=== PATIENT | male | born 1955 | race African-American/Black ===

== ENCOUNTER 2021-04-17 16:24 | Emergency (ER) | payer SELFPAY ==
[~2021-04-17] VITALS: Ht 172.7 cm; Wt 61.6 kg
[~2021-04-17 16:24] MED LIST: HYDR1TAB8 OP; SULF1TAB35 PO
[2021-04-17] MEDS ORDERED: ONDANSETRON 4 MG (ZOFRAN) ORAL DISSOLVE TAB PO STA (16:35)
[2021-04-17] MEDS ORDERED: LORazepam 0.5 MG (ATIVAN) TABLET PO STA (16:35)
[2021-04-17] MEDS ORDERED: FAMOTIDINE 20 MG (PEPCID) TABLET PO ONE (16:45)
[2021-04-17] MEDS ORDERED: PROCHLORPERAZINE 10 MG TAB (COMPAZINE) PO ONE (16:45)
[2021-04-17] MEDS ORDERED: PROCHLORPERAZINE 10 MG TAB (COMPAZINE) ONE (16:46)
--- NOTE | 2021-04-17 17:27 | ED GI ---
General Chief Complaint: Abdominal/GI Problems Stated Complaint: NAUSEA/VOMITING Nursing Triage Note: Patient presents to the ED with c/o nausea and vomiting. He states his symptoms began on Wednesday and he hasn't been able to keep any food or fluids down. Source of Information: Patient Exam Limitations: No Limitations History of Present Illness Date Seen by Provider: Apr 17, 2021 Time Seen by Provider: 17:24 Initial Comments Patient is a 65-year-old -[place] male who presents with complaints of written vomiting and diarrhea starting 2 days ago. He states he has had difficulty keeping food and fluids down. Reports abdominal cramping which is mild to moderate. Denies hematemesis coffee-ground emesis or bilious emesis. No fevers chills or sweats. Reports watery stools. No other acute symptoms or complaints. No medications or therapies taken prior to ED arrival.Denies dizziness lightheadedness, chest pain palpitation shortness of breath. No leg pain or swelling. No flank pain, urinary frequency urgency or dysuria. Timing/Duration: 2-3 Days Severity/Quality: Mild Location: Other Radiation: Other Activities at Onset: Other Modifying Factors: Improves With Other Allergies and Home Medications Allergies Coded Allergies: No Known Drug Allergies (Unverified , 12/13/13) Patient Home Medication List Home Medication List Reviewed: Yes Hydrocodone Bit/Ibuprofen (Vicoprofen 200-7.5 Mg Tab) 1 Each Tablet, 1 EACH OP Q 4 - 6 HRS PRN PRN for PAIN Prescribed by: RENY PATRICK on 12/13/13 1403 Sulfamethoxazole/Trimethoprim (Bactrim DS) 1 Each Tablet, 1 TAB PO BID Prescribed by: RENY PATRICK on 12/13/13 1403 Review of Systems Review of Systems Constitutional: see HPI EENTM: See HPI Respiratory: See HPI Cardiovascular: See HPI Gastrointestinal: See HPI Genitourinary: See HPI Musculoskeletal: see HPI Skin: see HPI Psychiatric/Neurological: See HPI Endocrine: See HPI Hematologic/Lymphatic: See HPI All Other Systems Reviewed Negative Unless Noted: Yes Past Hpyrmgb-Ppsjgc-Uzkigc Hx Patient Social History Tobacco Use?: Yes Tobacco type used: Cigarettes Smoking Status: Current Everyday Smoker Use of E-Cig and/or Vaping dev: No Substance use?: No Alcohol Use?: Yes Alcohol type: Beer Alcohol Frequency: Daily Pt feels they are or have been: No Immunizations Up To Date Tetanus Booster (TDap): Unknown First/Initial COVID19 Vaccinat: Not currently vacciated Past Medical History Adverse Reaction/Blood Tranf: No Physical Exam Vital Signs Vital Signs - First Documented 04/17/21 16:24 Temp 36.6 Pulse 81 Resp 20 B/P (MAP) 131/82 (98) Pulse Ox 97 O2 Delivery Room Air Capillary Refill : Less Than 3 Seconds Height/Weight/BMI Height: 5'8" Weight: 170lbs. oz. 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 as tested, no motor/sensory deficits, alert, oriented x 3 Lymphatic: no adenopathy Focused Exam Sepsis Stage: Ruled Out Progress/Results/Core Measures Results/Orders My Orders Orders - MAIA ZAVALA DO Lorazepam Tablet (Ativan Tablet) (04/17/21 16:35) Famotidine Tablet (Pepcid Tablet) (04/17/21 16:45) Prochlorperazine Tablet (Compazine Table (04/17/21 16:45) Prochlorperazine Tablet (Compazine Table (04/17/21 16:46) Medications Given in ED Current Medications Medications Dose Ordered Sig/Chitra Route Start Time Stop Time Status Last Admin Dose Admin Famotidine 20 mg ONCE ONCE PO 04/17/21 16:45 04/17/21 16:46 DC 04/17/21 16:52 20 MG Prochlorperazine Maleate 10 mg ONCE ONCE PO 04/17/21 16:45 04/17/21 16:47 DC 04/17/21 16:52 10 MG Vital Signs/I&O 04/17/21 16:24 Temp 36.6 Pulse 81 Resp 20 B/P (MAP) 131/82 (98) Pulse Ox 97 O2 Delivery Room Air Blood Pressure Mean: 98 Departure Communication (Admissions) Patient's abdomen soft, nontender. Vital signs remained stable. Symptoms resolved with treatment of oral medications. Patient requesting food and fluids in discharge. We will continue supportive care with PCP follow-up. Return precautions reviewed. Patient verbalizes understanding agreement discharge instructions prior to departure. Impression Primary Impression: Nausea and vomiting Disposition: 01 HOME, SELF-CARE Condition: Stable Departure-Patient Inst. Decision time for Depature: 17:26 Referrals: NO,LOCAL PHYSICIAN (PCP/Family) Primary Care Physician Patient Instructions: Nausea and Vomiting, Adult, Nausea and Vomiting, Adult (DC), Abdominal Pain, Adult ED Add. Discharge Instructions: Please go home and rest. Take newly prescribed medications as directed. Drink clear liquids only for the next 6 to 12 hours then gradually increase to bland diet as tolerated. Avoid all alcohol consumption. Follow-up with your PCP in 2 to 3 days for reevaluation. Return to the ED if new or worsening symptoms. All discharge instructions reviewed with patient and/or family. Voiced understanding. Scripts Lorazepam (Ativan) 1 Mg Tablet 1 MG SL Q8H PRN for ANXIETY for 2 Days, #6 TAB Prov: MAIA ZAVALA DO 04/17/21 Famotidine (Pepcid) 20 Mg Tablet 20 MG PO BID, #10 TAB Prov: MAIA ZAVALA DO 04/17/21 Ondansetron (Ondansetron Odt) 4 Mg Tab.rapdis 4 MG PO Q6H, #10 TAB Prov: MAIA ZAVALA DO 04/17/21 MAIA ZAVALA DO Apr 17, 2021 17:27
[2021-04-17] MEDS ORDERED: ONDA4TAB11 PO (17:30)
[2021-04-17] MEDS ORDERED: ALPR0.254 PO (17:30)
[2021-04-17] MEDS ORDERED: FAMO-119 PO (17:30)
[2021-04-17] MEDS ORDERED: LORA-405 SL (17:31)
[2021-04-17 17:36] VITALS: BP 135/78
== END 2021-04-17 17:34 | disposition home or self-care (01) ==
LOC: EDUNIT# 16:24 → ER FS 16:29
DX: R11.2 Nausea with vomiting, unspecified (principal); F17.210 Nicotine dependence, cigarettes, uncomplicated
CPT/HCPCS: 99283

== ENCOUNTER 2021-12-22 05:34 | Outpatient (CLI) | payer OTHER ==
[~2021-12-22] VITALS: Ht 172.7 cm; Wt 65.8 kg
[~2021-12-22 05:34] MED LIST changes: +ALPR0.254 PO; +FAMO-119 PO; +LORA-405 SL; +ONDA4TAB11 PO
[2021-12-24] MEDS ORDERED: PANT20TA18 PO (08:57)
== END 2021-12-24 08:59 ==
LOC: PREOP 05:34
PROVIDERS: ATTEND Surgery
DX: Z01.818 Encounter for other preprocedural examination (principal); R13.10 Dysphagia, unspecified

== ENCOUNTER 2021-12-26 11:19 | Day surgery (SDC) | payer OTHER ==
[2021-12-26] VITALS (7 sets, daily range): BP systolic 153–174; BP diastolic 84–96
[~2021-12-26] VITALS: Ht 173 cm; Wt 65.8 kg
[~2021-12-26 11:19] MED LIST changes: +PANT20TA18 PO
[2021-12-26] MEDS ORDERED: LACTATED RINGERS 1,000 ML IV STA (11:25)
[2021-12-26] MEDS ORDERED: HURRICAINE EXT TUBE (BENZOCAINE) XX PRN (11:30)
--- NOTE | 2021-12-26 12:11 | Progress Note-Pre Operative ---
Pre-Operative Progress Note Date of Available H&P: Dec 17, 2021 Date H&P Reviewed: Dec 26, 2021 Time H&P Reviewed: 12:09 History & Physical: H&P Reviewed, Patient Examed, No changes noted Pre-Operative Diagnosis: Hematochezia, Dysphagia ELISA OLEARY DO Dec 26, 2021 12:11
[2021-12-26] MEDS ORDERED: PROPOFOL INJECTION 50 ML IV ONE (12:15)
[2021-12-26] MEDS ORDERED: MIDAZOLAM 2 MG/2 ML (VERSED) VIAL ONE (12:15)
--- NOTE | 2021-12-26 13:06 | Anesthesia-General Post-Op ---
MAC Patient Condition Mental Status/LOC: Same as Preop Cardiovascular: Satisfactory Nausea/Vomiting: Absent Respiratory: Satisfactory Pain: Controlled Complications: Absent Post Op Complications Complications None Follow Up Care/Instructions Patient Instructions None needed. Anesthesiology Discharge Order Discharge Order Patient is doing well, no complaints, stable vital signs, no apparent adverse anesthesia problems. No complications reported per nursing. LETY FAIRCHILD CRNA Dec 26, 2021 13:06
--- NOTE | 2021-12-26 13:43 | Progress Note-Post Operative ---
Post-Operative Progess Note Surgeon (s)/Zone Maintenance Technician (s) Surgeon ELISA OLEARY DO Zone Maintenance Technician: Jailyn Goetz, MSIII Pre-Operative Diagnosis Hematochezia, Dysphagia Post-Operative Diagnosis Antral ulcer Gastritis Small Hiatal hernia Polyps diverticula int hemorrhoids rectal prolapse poor prep Procedure & Operative Findings Date of Procedure 12/26/21 Procedure Performed/Findings EGD with bx Colonoscopy with Snare Polypectomy PROCEDURE NOTE: After informed consent was obtained, the patient was brought to the endoscopy suite, placed in bed in left lateral decubitus position. He was administered IV sedation by the MARKETING OPERATIONS ASSOCIATE who then monitored vitals the entire time, heart rate, blood pressure and pulse ox and the scope was inserted down the mouth through the esophagus into the stomach. Pushed past the antrum and into the duodenum. Duodenum looked good. Pulled back and saw what looked like an ulcer; did a biopsy of this it was at the antrum. Then retroflexed the scope and saw a small (less than 0.5cm) hiatal hernia, took a picture of this and then did two biopsies of the body of stomach. Next, pulled the scope into the GE junction and took a picture and did a biopsy of the GE junction. Pushed the scope back into the stomach, suctioned all the air out of the stomach. At this point pulled the scope up the esophagus and out the mouth. Switched camera, switched gloves, went down below and started the colonoscopy. Before putting scope in noted a large rectal prolapse and took a picture. Immediately upon entering encountered fecal material. Pushed in to about 130 cm and unfortunately found fecal material all along the way; preventing me from getting to the cecum. I did note some diverticula on the way to the cecum. Because of the retained fecal material elected to stop in the Ascending colon and slowly withdraw the scope, insufflating to look circumferentially at the bhandari from the ascending colon to the hepatic flexure, then down the transverse colon, splenic flexure and into the descending colon. Found a polyp here and did a snare polypectomy. Then down into the sigmoid where I found another larger polyp; also removed with snare polypectomy. Finally into the rectum, retroflexed in the rectal vault, saw some minimal internal hemorrhoids and took a picture of them. The patient tolerated the procedure and he recovered in the endoscopy suite. Recommended for repeat colonoscopy within a year because he was not clean and unable to get to cecum. Anesthesia Type IV sedation by MARKETING OPERATIONS ASSOCIATE Estimated Blood Loss Estimated blood loss (mL): scant Specimens/Packing Specimens Removed antral bx body of stomach bx GE jxn bx, accidentally got put in with body bx desc colon polyp sigmoid polyp ELISA OLEARY DO Dec 26, 2021 13:43
--- NOTE | 2021-12-26 13:47 | Endoscopy Discharge Instruct ---
Endo Procedure/Findings Findings 1.: Gastric Ulcer, Gastritis 2.: Hiatal Hernia 3.: Polyp 4.: Diverticulosis, Internal Hemorrhoids Discharge Instructions - Activity: You might feel a little sleepy until tomorrow. This is due to the medicine you received to relax you. Until tomorrow, you should: NOT drive a car, operate machinery or power tools. NOT drink any alcoholic beverages. NOT make any important decisions or sign importortant papers. Do not return to work until tomorrow, unless otherwise instructed. Resume previous activities tomorrow. Diet: Start by taking liquids. If you tolerate liquids, advance to solid food. 1.: EGD in 1 year 2.: Colonoscopy in 1 year Notify Physician - If you experience excessive bleeding, unusual abdominal pain, fever, or chest pain, contact your doctor immediately. ELISA OLEARY DO Dec 26, 2021 13:46
== END 2021-12-26 14:05 | disposition home or self-care (01) ==
LOC: ENDO 11:19
PROVIDERS: ATTEND Surgery
DX: K29.50 Unspecified chronic gastritis without bleeding (principal); B96.81 Helicobacter pylori [H. pylori] as the cause of diseases classified elsewhere; K63.5 Polyp of colon; K25.9 Gastric ulcer, unspecified as acute or chronic, without hemorrhage or perforation; K44.9 Diaphragmatic hernia without obstruction or gangrene; K57.30 Diverticulosis of large intestine without perforation or abscess without bleeding; K64.8 Other hemorrhoids; K62.3 Rectal prolapse; F17.210 Nicotine dependence, cigarettes, uncomplicated
CPT/HCPCS: 88305